=== PATIENT | male | born 1930 | race Caucasian/White ===

== ENCOUNTER → 2016-08-31 | Outpatient (CLI) | payer MEDICARE, BC ==
--- NOTE | 2016-08-31 10:28 | RAD ---
History: Shortness of breath. Chest x-ray: PA and lateral views are obtained. No prior study is available. Mediastinal surgical changes are shown with cardiac silhouette upper normal. Pulmonary vascularity is within normal limits. No significant infiltrate or effusion. Minimal patchy atelectasis or scarring probably in the right middle lobe. Somewhat irregular appearing nodular density right upper lung. CT evaluation is recommended. Diffuse osteopenia. IMPRESSION: 1. Irregular nodular density right upper lung. CT chest is recommended. 2. Minimal patchy atelectasis or scarring suspected in the right middle lobe. Electronically signed by: Aimee Monroe MD 08/31/2016 10:27 AM CDT
== END | disposition home or self-care (01) ==
LOC: LAB.O 08:11
PROVIDERS: ATTEND Internal Medicine Interventional Cardiology
DX: I48.91 Unspecified atrial fibrillation (principal); R06.02 Shortness of breath

== ENCOUNTER → 2016-09-21 | Outpatient (CLI) | payer MEDICARE ==
--- NOTE | 2016-09-22 07:10 | CT ---
EXAM DESCRIPTION: Chest w/o Contrast CLINICAL HISTORY: ABNORMAL CXR COMPARISON: None available TECHNIQUE: Chest CT was performed without IV contrast. This exam was performed according to our departmental dose-optimization program, which includes automated exposure control, adjustment of the mA and/or kV according to patient size and/or use of iterative reconstruction technique. FINDINGS: Postoperative changes are noted in the mediastinum. There are mural calcifications in the thoracic aorta and coronary arteries without thoracic aortic aneurysm. Sensitivity for detection of adenopathy is limited by lack of IV contrast. Is a slightly enlarged subcarinal lymph node measuring 11 mm short axis diameter. Subthreshold lymph nodes are noted elsewhere in the mediastinum. No hilar adenopathy. No pleural pericardial effusion. Emphysematous changes are noted. There is a cavitated 3.4 cm right upper lobe nodule (series 2 image 24) which correlates with findings from recent chest radiograph. No additional lung nodule or airspace consolidation is seen. There are a few small gallstones in the gallbladder neck, only partially visualized. Visualized portions of the upper abdomen are otherwise unremarkable for noncontrast technique. There is no suspicious bone lesion. IMPRESSION: 3.4 cm cavitated right upper lobe nodule, nonspecific. This should be considered neoplasm until proven otherwise, but cavitated granulomatous disease could have a similar appearance. If clinically relevant, biopsy may be helpful. Single slightly enlarged subcarinal lymph node, but no additional mediastinal or hilar adenopathy. Limited sensitivity for detection of adenopathy due to lack of IV contrast. Emphysema. Coronary artery disease. Cholelithiasis. Electronically signed by: Tony Marsh MD 09/22/2016 7:09 AM CDT
== END | disposition home or self-care (01) ==
LOC: CT 10:36
PROVIDERS: ATTEND Internal Medicine Interventional Cardiology
DX: R93.8 Abnormal findings on diagnostic imaging of other specified body structures (principal)

== ENCOUNTER → 2017-09-16 | Outpatient (CLI) | payer MEDICARE ==
--- NOTE | 2017-09-18 17:21 | MRI ---
EXAM DESCRIPTION: Brain w/o Contrast: MRI. CLINICAL HISTORY: DISTURBANCES OF SKIN SENSATION COMPARISON: None. TECHNIQUE: Multiplanar, high-field MRI unit, multiple diffusion sequences, multiple conventional sequences without contrast. FINDINGS: Bilateral small multiple foci of hyperintense FLAIR and T2-weighted signal in the periventricular white matter predominantly; fewer lesions in the zhang-white matter junctions of the cerebral hemispheres. . Similar-appearing lesions in the posterior right basal ganglia and the lateral and anterior left basal ganglia. No hemorrhage, no cerebral edema, no mass-effect. Normal signal in the brainstem and cerebellar hemispheres. No hemorrhage, no cerebral edema, no mass-effect. Concordance of the diffusion and non-diffusion sequences with no diffusion restriction. Cortical sulci, ventricles, and other CSF spaces, and the subdural spaces are normally configured for patients age. No effacement or displacement. No midline shift. No extra-axial hemorrhage. Normal flow signal void in the major vessels of the upper [place], and the venous sinuses. IACs are symmetric bilaterally. Minimal fluid or edema in the inferior bilateral mastoid air cells. No mass effect in the bilateral cerebellopontine angles. Pituitary gland occupies all of the sella. Base of the cerebellar tonsils is above the foramen magnum. Minimal bilateral mucoperiosteal thickening in the paranasal sinuses. Bilateral mucosal edema in the nasal passageways The bony calvarium is intact. IMPRESSION: 1. Bilateral multifocal signal hyperintensities predominantly in the periventricular white matter less prevalent in the bilateral subcortical white matter. These are most likely related to cerebral microvascular disease. With these symptoms, cannot exclude demyelinating process. No diffusion restriction. Other considerations or migraine headaches, vasculitis, an inflammatory process. Probable vascular disease in the bilateral basal ganglia. 2. Inflammatory process in the sinuses and the mastoid air cells. 3. Normal noncontrast MRI diffusion study with no evidence of acute or subacute infarction.. Electronically signed by: John Torres MD 09/18/2017 5:19 PM CDT
== END ==
LOC: MRI 14:00
PROVIDERS: ATTEND Family Medicine
DX: R20.9 Unspecified disturbances of skin sensation (principal)

== ENCOUNTER → 2017-11-15 | Outpatient (CLI) | payer MEDICARE ==
--- NOTE | 2017-11-15 19:21 | MRI ---
EXAM DESCRIPTION: MRA Head and/or Neck CLINICAL HISTORY: MRA NECK, STENOSIS COMPARISON: MRA of the brain on the same visit. TECHNIQUE: 2D [id number] thin-section axial acquisitions from the lower neck through the base of the skull. Non contrast. MIP reconstructions. FINDINGS: The origins of the right common carotid artery is unremarkable. The left common carotid artery Approximately 25% diameter stenosis at the left common carotid bifurcation. Approximately 20% diameter stenosis of the origin of the left ECA. No significant narrowing of the origin of the left ICA. Approximately 30% diameter stenosis of the right common carotid bulb. Approximately 50% diameter stenosis of the origin of the right ECA. Approximately 35% diameter stenosis of the origin of the right ICA. No significant narrowing of the bilateral cervical segments of the ICAs. No aneurysms, mass effect, or vasculitis. Normal origins of the bilateral vertebral arteries. Symmetric appearance in the lateral vertebral foramina. At the base of the skull the right vertebral artery is slightly dominant. No aneurysms, significant stenosis, vasculitis, or mass effect. IMPRESSION: No hemodynamically significant stenosis in the carotid and vertebral circulation. No aneurysms, mass effect, or vasculitis. Electronically signed by: John Torres MD 11/15/2017 7:19 PM CDT
--- NOTE | 2017-11-16 06:19 | MRI ---
EXAM DESCRIPTION: MRA Head and/or Neck CLINICAL HISTORY: MRA HEAD, STENOSIS COMPARISON: None. TECHNIQUE: 3-D [id number] thin-section axial acquisitions from the base of the skull through the mid axial level of the brain. Non contrast. MIP reconstructions. FINDINGS: Minimal narrowing of the bilateral ICAs in the transverse canal is in the carotid siphons. Flow signal in the anterior circulation is unremarkable. In the posterior circulation, the right vertebral artery slightly dominant. Slight tortuosity of the basilar artery with usual vessels supplying the cerebellum exiting from the vertebral and basilar arteries. Main flow from the basilar artery is into the right posterior cerebral artery. A small rudimentary left posterior cerebral artery exits the basilar artery. Most of the flow into the left posterior cerebral artery is from the ICA via left posterior communicating artery. No right posterior communicating artery is seen. No aneurysm, no significant stenosis, no mass effect and no vasculitis. IMPRESSION: No significant abnormalities noted on MRA of the brain. Physiologic vascular changes are noted. Electronically signed by: John Torres MD 11/16/2017 6:18 AM CDT
== END ==
LOC: MRI 12:46
PROVIDERS: ATTEND Psychiatry & Neurology Neurology
DX: Z01.812 Encounter for preprocedural laboratory examination (principal); G60.3 Idiopathic progressive neuropathy; I35.0 Nonrheumatic aortic (valve) stenosis; M54.12 Radiculopathy, cervical region; M54.16 Radiculopathy, lumbar region; G45.9 Transient cerebral ischemic attack, unspecified

== ENCOUNTER → 2017-11-30 | Outpatient (CLI) | payer MEDICARE | LOC: RESP 12:56 | PROVIDERS: ATTEND Family Medicine | DX: I48.91 Unspecified atrial fibrillation (principal) ==

== ENCOUNTER → 2018-02-14 | Outpatient (CLI) | payer MEDICARE ==
--- NOTE | 2018-02-14 16:45 | CT ---
EXAM: Abdomen w/Contrast CLINICAL HISTORY: GENERALIZED ABD PN COMPARISON STUDY: None TECHNICAL: Post contrast images were performed through the abdomen. Sagittal and coronal reconstructions were obtained. FINDINGS: The visible portion of the chest shows emphysematous changes at the visible lungs are clear.. The heart is enlarged. The liver, spleen, pancreas, adrenal glands, and kidneys enhance appropriately and demonstrate no acute abnormality. The gallbladder is intact and contains calcified gallstones but there is no evidence pericholecystic inflammation. The proximal common bile duct is dilated to 10 mm. There is mild intrahepatic biliary dilatation. There is no bowel obstruction or free air. There is no acute inflammatory process. The appendix is not confidently identified but there are no inflammatory changes the right lower quadrant. A moderate amount of stool is present throughout colon.. The IVC and retroperitoneum are negative. The aorta has atherosclerotic changes and is ectatic. There are moderate degenerative changes of the bilateral facets at the last 2 levels of the lumbar spine. There is a mild diffuse demineralization of the osseous structures. IMPRESSION: 1. Cholelithiasis without pericholecystic inflammation but the common bile duct is dilated to 10 mm and the intrahepatic biliary system is dilated. Correlation with liver function test should help exclude obstruction. 2. Moderate amount stool within the colon suggest constipation. 3. Ectatic atherosclerotic abdominal aorta. This exam was performed according to our departmental dose-optimization program, which includes automated exposure control, adjustment of the mA and/or kV according to patient size and/or use of iterative reconstruction technique. Electronically signed by: Cecil Berumen MD 02/14/2018 4:43 PM CDT
== END ==
LOC: CT 14:00
PROVIDERS: ATTEND Family Medicine
DX: K80.20 Calculus of gallbladder without cholecystitis without obstruction (principal); I48.91 Unspecified atrial fibrillation; I70.0 Atherosclerosis of aorta; R10.84 Generalized abdominal pain